=== PATIENT | female | born 1945 | race Caucasian/White ===

== ENCOUNTER 2020-07-20 09:41 | Day surgery (SDC) | payer MEDICARE, BC ==
[~2020-07-20 09:41] MED LIST: Metoclopramide 10 MG/2 ML SDV IV PRN; Sodium Chloride 0.9% 1,000 ML IV SCH
[2020-07-20] MEDS ORDERED: Propofol 200 MG/20 ML SDV ONE (11:15)
[2020-07-20 12:55] VITALS: BP 118/52; PULSE 63
--- NOTE | 2020-07-20 17:35 | OR ---
DATE OF OPERATION: 07/20/2020 SURGEON: Philip Leonard MD PREOPERATIVE DIAGNOSIS: High risk, personal history of polyps. POSTOPERATIVE DIAGNOSIS: High risk, personal history of polyps. PROCEDURE: Colonoscopy. ANESTHESIA: MAC. ESTIMATED BLOOD LOSS: None. COMPLICATIONS: None. INDICATION FOR THE PROCEDURE: The patient is a 75-year-old female with a personal history of polyps. The last colonoscopy was about 6 years ago. She was supposed to have 3-year followup. She has not had that and is here today. She otherwise denies any change in bowel habits. At last colonoscopy did have colon polyps resected. DESCRIPTION OF PROCEDURE: Informed consent was obtained from the patient. The patient was taken to the operating room, placed on the table in left lateral decubitus position. Monitored anesthesia care was administered and digital rectal exam performed and was normal. Colonoscope was then advanced through the anus directed towards the cecum. Cecum was reached and identified by appendiceal orifice and ileocecal valve. Colonoscope was then slowly withdrawn. No masses. No polyps. No areas of ischemia or inflammation identified. Rectum was also otherwise unremarkable and colonoscope then withdrawn. FINDINGS: Normal colonoscopy. RECOMMENDATIONS: Would recommend repeat surveillance colonoscopy in 5 years due to history of polyps. JOSÉ/BANDAR /[id number]
== END 2020-07-20 12:32 | disposition home or self-care (01) ==
LOC: LB.SDS 09:41
PROVIDERS: ATTEND Surgery
DX: Z12.11 Encounter for screening for malignant neoplasm of colon (principal); K21.9 Gastro-esophageal reflux disease without esophagitis; I10 Essential (primary) hypertension; E78.5 Hyperlipidemia, unspecified; E03.9 Hypothyroidism, unspecified; M31.30 Wegener's granulomatosis without renal involvement; Z98.890 Other specified postprocedural states; Z86.010 Personal history of colon polyps; Z79.899 Other long term (current) drug therapy; Z79.890 Hormone replacement therapy
CPT/HCPCS: J2704; J7030

== ENCOUNTER 2021-04-21 08:45 | Emergency (ER) | payer MEDICARE, BC ==
--- NOTE | 2021-04-21 10:58 | EDM.PDOC ---
ED HPI GENERAL MEDICAL PROBLEM - General Chief Complaint: Respiratory Problem Stated Complaint: COUGH, NOT FEELING WELL Time Seen by Provider: 04/21/21 10:48 Source of Information: Reports: Patient History Limitations: Reports: No Limitations - History of Present Illness INITIAL COMMENTS - FREE TEXT/NARRATIVE: 75-year-old female presents to the ER after first getting a Covid test in the parking lot, for a cough that is going on for 1 week associated with chills. Patient was exposed to her grandson approximately 1-1/2 weeks ago grandson had a fever at that time. Patient describes a productive cough that is pretty consistent throughout the day that produces dark green mucus. Patient also complains of a sinus headache and a fullness in the right ear. Patient denies chest pain, shortness of breath, GI or symptoms, near syncope, or trauma. Severity: Mild Improves with: Reports: Other (Patient has tried no symptomatic [id number] care) Associated Symptoms: Reports: Cough, Fever/Chills, Headaches. Denies: Chest Pain, Loss of Appetite, Malaise, Nausea/Vomiting, Rash, Shortness of Breath, Syncope, Weakness - Related Data Allergies Allergy/AdvReac Type Severity Reaction Status Date / Time No Known Allergies Allergy Verified 04/21/21 10:53 Home Meds: Home Meds Folic Acid 1 mg PO DAILY 02/14/16 [History] Levothyroxine Sodium 100 mcg PO DAILY 02/14/16 [History] Lisinopril 5 mg PO DAILY 02/14/16 [History] Methotrexate Sodium [Methotrexate] 7.5 mg PO WEEKLY 02/14/16 [History] atorvaSTATin [Lipitor] 10 mg PO BEDTIME 02/14/16 [History] Nitrofurantoin Monohyd/M-Cryst [Macrobid 100 mg Capsule] 100 mg PO Q12HR 5 Days #10 capsule 04/21/21 [Rx] Omeprazole 10 mg PO DAILY 04/21/21 [History] prednisoLONE [Millipred Dp] 5 mg PO ASDIRECTED 6 Days #21 tab.ds.pk 04/21/21 [Rx] Past Medical History Cardiovascular History: Reports: High Cholesterol, Hypertension Gastrointestinal History: Reports: Colon Polyp Endocrine/Metabolic History: Reports: Hypothyroidism - Past Surgical History GI Surgical History: Reports: Colonoscopy Social & Family History - Family History Family Medical History: No Pertinent Family History Cardiac: Reports: High Cholesterol, Hypertension - Caffeine Use Caffeine Use: Reports: Coffee ED ROS GENERAL - Review of Systems Review Of Systems: See Below (Located yes I right-handed) Constitutional: Reports: Fever, Chills HEENT: Reports: Other (Congestion, "sinus issues ", ear fullness right ear) Respiratory: Reports: Cough. Denies: Shortness of Breath, Pleuritic Chest Pain Cardiovascular: Reports: No Symptoms Endocrine: Reports: No Symptoms GI/Abdominal: Reports: No Symptoms : Reports: No Symptoms Musculoskeletal: Reports: No Symptoms Skin: Reports: No Symptoms Neurological: Reports: No Symptoms Psychiatric: Reports: No Symptoms Hematologic/Lymphatic: Reports: No Symptoms Immunologic: Reports: No Symptoms ED EXAM, GENERAL - Physical Exam Exam: See Below Exam Limited By: No Limitations General Appearance: Alert, WD/WN, No Apparent Distress Eye Exam: Bilateral Eye: EOMI, Normal Inspection, PERRL Ears: Normal External Exam, Normal Canal, Hearing Grossly Normal, Other (Serous effusion on the right TM) Nose: Clear Rhinorrhea, Other (Mucosal erythema) Throat/Mouth: Normal Inspection, Normal Lips, Normal Teeth, Normal Gums, Normal Voice, No Airway Compromise Respiratory/Chest: No Respiratory Distress, Lungs Clear, Normal Breath Sounds, No Accessory Muscle Use, Chest Non-Tender Cardiovascular: Normal Peripheral Pulses, Regular Rate, Rhythm, No Edema, No Gallop, No JVD, No Murmur, No Rub Extremities: Normal Inspection, No Pedal Edema Neurological: Alert, Oriented, Normal Cognition, Normal Gait Psychiatric: Normal Affect, Normal Mood Skin Exam: Warm, Dry, Intact, Normal Color, No Rash Course - Orders/Labs/Meds Orders: Active Orders 24 hr Category Date Time Status Chest 2V [CR] Stat Exams 04/21/21 10:29 Ordered UA RFX CARLO AND CULT IF INDIC [URIN] Stat Lab 04/21/21 10:29 Ordered Patient's UA came back with positive white blood cell, positive leukocyte esterase, negative nitrites. Patient will be treated for concomitant UTI. Patient was prescribed Macrobid. Labs: Laboratory Tests 04/21/21 Range/Units 09:14 SARS-CoV-2 RNA (NISSA) Negative (NEGATIVE) Departure - Departure Time of Disposition: 12:20 Disposition: Home, Self-Care 01 Condition: Good Clinical Impression: Acute bronchiolitis, Cough - Discharge Information *PRESCRIPTION DRUG MONITORING PROGRAM REVIEWED*: No *COPY OF PRESCRIPTION DRUG MONITORING REPORT IN PATIENT MAYCOL: No Instructions: Cough, Adult, [id number] Referrals: PCP,None [Primary Care Provider] - - Problem List & Annotations (1) Cough SNOMED Code(s): 47254490 Code(s): R05 - COUGH Status: Acute Current Visit: Yes Annotation/Comment:: ABC, history, exam, treat empirically for cough with albuterol x1 nebulizer in the ER. Plan for the patient is to get chest x-ray to rule out pneumonia, and a UA to address possible concomitant UTI. Prescriptions for Macrobid for UTI and prednisolone Dosepak sent to patient's pharmacy. - My Orders Last 24 Hours: My Active Orders 04/21/21 10:29 Chest 2V [CR] Stat UA RFX CARLO AND CULT IF INDIC [URIN] Stat - Assessment/Plan Last 24 Hours: My Active Orders 04/21/21 10:29 Chest 2V [CR] Stat UA RFX CARLO AND CULT IF INDIC [URIN] Stat Plan: Patient has been educated about symptomatic treatment of a viral upper respiratory infection. Including nasal saline flushes, decongestants, Tylenol, humidifiers, and pvwa-yih-zcyryww remedies such as dextromethorphan or homeopathic such as honey. Patient will receive albuterol nebulizer in the ER and will be sent home with Medrol Dosepak.
[2021-04-21] MEDS ORDERED: Albuterol 0.083% 2.5 MG/3 ML Neb Soln NEB ONE (11:08)
[2021-04-21] MEDS ORDERED: Albuterol 0.083% 2.5 MG/3 ML Neb Soln ONE (11:42)
[2021-04-21 11:49] VITALS: BP 108/55; PULSE 81
--- NOTE | 2021-04-22 08:38 | CR ---
DATE OF SERVICE: 04/21/21 CLINICAL DATA: cough PA AND LATERAL CHEST: Comparison is made to a prior exam dated 10/13/11. The heart size is normal. There is calcification of the aortic arch. The lungs are mildly hyperexpanded but clear. No pneumothorax. No pleural effusions. There is degenerative disc disease throughout the thoracic spine. No evidence of acute intrathoracic disease. [id number] [facility]
== END 2021-04-21 12:05 | disposition home or self-care (01) ==
LOC: LB.ED 08:45
DX: J20.9 Acute bronchitis, unspecified (principal); E78.00 Pure hypercholesterolemia, unspecified; I10 Essential (primary) hypertension; E03.9 Hypothyroidism, unspecified; Z79.899 Other long term (current) drug therapy
CPT/HCPCS: 71046; 81001; 87086; 99284; U0002

== ENCOUNTER 2023-05-30 09:16 | Emergency (ER) | payer MEDICARE, BC ==
[2023-05-30 09:54] VITALS: BP 138/73; PULSE 77
[2023-05-30] MEDS: Sodium Chloride 0.9% 1,000 ML IV ONE (10:10)
[2023-05-30 10:27] LABS: BASOPHILS ABSOLUTE AUTO 0.01 K/uL (0.02-0.10); BASOPHILS PERCENT AUTO 0.1 % (0.0-0.5); EOSINOPHILS ABSOLUTE AUTO 0.13 K/uL (0.04-0.40); EOSINOPHILS PERCENT AUTO 1.5 % (1.0-5.0); HEMATOCRIT 41.8 % (37.0-47.0); HEMOGLOBIN 13.8 g/dL (11.5-16.5); LYMPHOCYTES ABSOLUTE AUTO 1.99 K/uL (1.50-4.00); LYMPHOCYTES PERCENT AUTO 22.5 % (20.0-40.0); MEAN CORPUSCULAR VOLUME 94 fL (76-96); MEAN PLATELET VOLUME 11.6 fL (6.0-10.0); MONOCYTES ABSOLUTE AUTO 0.85 K/uL (0.20-0.80); MONOCYTES PERCENT AUTO 9.6 % (3.0-10.0); NEUTROPHILS ABSOLUTE AUTO 5.86 K/uL (2.00-7.50); NEUTROPHILS PERCENT AUTO 66.3 % (45.0-70.0); PLATELET COUNT,PLT 184 K/uL (150-500); RED BLOOD CELL COUNT 4.45 M/uL (3.80-5.80); RED CELL DISTRIBUTION WIDTH 14.3 % (11.0-16.0); WHITE BLOOD CELL COUNT,WBC 8.8 K/uL (4.0-11.0)
[2023-05-30 10:47] LABS: A/G RATIO 0.9 (0.8-2.0); ALBUMIN 3.4 g/dL (3.4-5.0); ANION GAP 9.8 mmol/L (5.0-15.0); BILIRUBIN TOTAL 0.9 mg/dL (0.0-1.0); BUN/CREATININE RATIO 22.1 (6-25); CALCIUM 10.4 mg/dL (8.5-10.1); CARBON DIOXIDE,CO2 25.2 mmol/L (21.0-32.0); CREATININE 1.04 mg/dL (0.55-1.02); EST CRCL DRUG DOSING (CG) 45.45 mL/min; PROTEIN TOTAL,TP 7.1 g/dL (6.4-8.2)
== END 2023-05-30 11:52 | disposition home or self-care (01) ==
LOC: LB.ED 09:16
DX: K52.9 Noninfective gastroenteritis and colitis, unspecified (principal); E86.0 Dehydration; I10 Essential (primary) hypertension; E78.00 Pure hypercholesterolemia, unspecified; E03.9 Hypothyroidism, unspecified; Z79.899 Other long term (current) drug therapy
CPT/HCPCS: 36415; 80053; 85025; 96360; 99284-25; J7030

== ENCOUNTER 2023-12-20 07:06 | Emergency (ER) | payer MEDICARE, BC ==
[2023-12-20] MEDS ORDERED: Sodium Chloride 0.9% 10 ML Syringe FLUSH PRN (07:52)
[2023-12-20 08:02] LABS: BASOPHILS ABSOLUTE AUTO 0.03 K/uL (0.02-0.10); BASOPHILS PERCENT AUTO 0.2 % (0.0-0.5); EOSINOPHILS ABSOLUTE AUTO 0.05 K/uL (0.04-0.40); EOSINOPHILS PERCENT AUTO 0.3 % (1.0-5.0); HEMATOCRIT 38.8 % (37.0-47.0); HEMOGLOBIN 12.6 g/dL (11.5-16.5); LYMPHOCYTES ABSOLUTE AUTO 2.89 K/uL (1.50-4.00); LYMPHOCYTES PERCENT AUTO 19.2 % (20.0-40.0); MEAN CORPUSCULAR HEMOGLOBIN 30.9 pg (27.0-32.0); MEAN CORPUSCULAR HGB CONC 32.5 g/dL (31.0-35.0); MEAN CORPUSCULAR VOLUME 95 fL (76-96); MEAN PLATELET VOLUME 11.7 fL (6.0-10.0); MONOCYTES ABSOLUTE AUTO 1.65 K/uL (0.20-0.80); NEUTROPHILS ABSOLUTE AUTO 10.42 K/uL (2.00-7.50); NEUTROPHILS PERCENT AUTO 69.3 % (45.0-70.0); PLATELET COUNT,PLT 203 K/uL (150-500); RED BLOOD CELL COUNT 4.08 M/uL (3.80-5.80); RED CELL DISTRIBUTION WIDTH 14.2 % (11.0-16.0)
[2023-12-20] MEDS: Aspirin 81 MG Tab.Chew PO ONE (08:24)
[2023-12-20] MEDS: Nitroglycerin 0.4 MG Tab.SL SL ONE (08:27)
[2023-12-20] MEDS: Sodium Chloride 0.9% 1,000 ML IV SCH (08:38)
[2023-12-20] MEDS: Morphine 4 MG/ML VIAL IVPUSH ONE (08:42)
[2023-12-20 08:49] LABS: ANION GAP 12.6 mmol/L (5.0-15.0); BUN/CREATININE RATIO 21.2 (6-25); CALCIUM 9.9 mg/dL (8.5-10.1); CARBON DIOXIDE,CO2 25.7 mmol/L (21.0-32.0); CREATININE 1.18 mg/dL (0.55-1.02); EST CRCL DRUG DOSING (CG) 39.44 mL/min; POTASSIUM,K 4.3 mmol/L (3.5-5.1); TROPONIN I HIGH SENSITIVITY 5.8 pg/ml (<=60.4)
[2023-12-20] MEDS: Albuterol/Ipratropium 3.0-0.5 MG/3 ML Neb Soln NEB SCH (09:14)
[2023-12-20] MEDS: Azithromycin 500 MG in Sodium Chloride 0.9% 250 ML IV ONE (10:02)
[2023-12-20 12:04] VITALS: BP 101/46; PULSE 69
== END 2023-12-20 11:53 | disposition home or self-care (01) ==
LOC: LB.ED 07:06
DX: R07.89 Other chest pain (principal); E86.0 Dehydration; I10 Essential (primary) hypertension; K21.9 Gastro-esophageal reflux disease without esophagitis; E78.00 Pure hypercholesterolemia, unspecified; E03.9 Hypothyroidism, unspecified; Z79.890 Hormone replacement therapy; Z79.899 Other long term (current) drug therapy
CPT/HCPCS: 36415; 71045; 80048; 83880; 84484; 85025; 85379; 93005; 93010; 94640; 96361; 96365; 96375; 99284; 99285-25; A9270-GY; J0456; J2270; J7030; J7050; J7620